=== PATIENT | male | born 1995 | race Caucasian/White ===

== ENCOUNTER 2019-10-07 09:46 | Day surgery (SDC) | payer OTHER, SELFPAY ==
[2019-10-07] VITALS (12 sets, daily range): BP systolic 103–127; BP diastolic 41–81; PULSE 53–100; RESP 12–22; TEMP 36.2–36.6; O2SAT 95–100
--- NOTE | ~2019-10-07 | CT_ITS ---
EXAMINATION: CT abdomen pelvis w con DATE: 10/07/2019 12:21 INDICATION: Generalized abdominal pain. Vomiting. TECHNIQUE: Computed tomography (CT) of the abdomen and pelvis was performed with 100 mL Omnipaque 350 intravenous contrast. Automated exposure control and iterative reconstruction technique were employe d. The dose-length product was 451.83 mGy-cm. COMPARISON: None. FINDINGS: The visualized portions of the lung bases are clear without pneumonia or pleural effusion. The heart size is normal. No pericardial effusion. The liver, gallbladder, spleen, pancreas, adrenal glands, and kidneys are normal. The appendix is dilated to 10 mm with surrounding mild fat stranding, consistent with appendicitis. There are no pathologically enlarged lymph nodes. There is no free int raperitoneal fluid. There is mild lumbar spondylosis. IMPRESSION: 1. Acute appendicitis. I called this result to Mikaela Meléndez on 10/07/19 at 12:36 PM. Reviewed, dictated and finalized at location A. PHONE BETTING CLERK
--- NOTE | 2019-10-07 10:15 | ED.GENADULT ---
HPI - General Adult General Chief complaint: Abdominal Pain <VICTOR HUGO Dias Last Filed: 10/07/19 13:02> Stated complaint: Abd pain, vomiting <VICTOR HUGO Dias Last Filed: 10/07/19 13:02> Time Seen by Provider: 10/07/19 10:14 <VICTOR HUGO Dias Last Filed: 10/07/19 13:02> Source: patient and family <VICTOR HUGO Dias Last Filed: 10/07/19 13:02> Mode of arrival: ambulatory <VICTOR HUGO Dias Last Filed: 10/07/19 13:02> Limitations: no limitations <VICTOR HUGO Dias Last Filed: 10/07/19 13:02> History of Present Illness HPI narrative: Patient is here for evaluation of vomiting that started this morning approximately 5 AM. He states that he frequently has colicky abdominal pain but today the pain was significant primarily across his mid abdomen. But he describes the pain as throughout his abdomen, no localized area. His emesis was clear, he had a hard stool this morning. And is urinating fine. No fever. No history of bowel disease in himself or his family. <VICTOR HUGO Dias Last Filed: 10/07/19 13:02> Onset (ago): hour(s) <VICTOR HUGO Dias Last Filed: 10/07/19 13:02> Location: abdomen <VICTOR HUGO Dias Last Filed: 10/07/19 13:02> Radiation: periumbilical <VICTOR HUGO Dias Last Filed: 10/07/19 13:02> Severity: moderate <VICTOR HUGO Dias Last Filed: 10/07/19 13:02> Quality: aching <VICTOR HUGO Dias Last Filed: 10/07/19 13:02> Relieving factors: none <VICTOR HUGO Disa Last Filed: 10/07/19 13:02> Exacerbating factors: movement <Mikaela Meléndez PA-C - Last Filed: 10/07/19 13:02> Associated symptoms: denies other symptoms <Mikaela Meléndez PA-C - Last Filed: 10/07/19 13:02> Related Data Allergies/adverse reactions: Allergies Allergy/AdvReac Type Severity Reaction Status Date / Time No Known Allergies Allergy Unverified 10/07/19 10:04 <Mikaela Meléndez PA-C - Last Filed: 10/07/19 13:02> Review of Systems Review of Systems: All systems reviewed & are unremarkable except as noted in HPI and below <VICTOR HUGO Dias Last Filed: 10/07/19 13:02> [facility] Past Medical History Medical History: Medical History Marijuana smoker Marijuana use Nasal bone fx-closed nasal reconstruction. Smoker <VICTOR HUGO Dias Last Filed: 10/07/19 13:02> Family History Family History: Family History (Updated 10/07/19 @ 18:18 by Cristy Goff RN) Mother Irritable bowel syndrome Grandparent Diabetes mellitus <VICTOR HUGO Dias Last Filed: 10/07/19 13:02> Social History Social History: Social History Smoking status: Current every day smoker Tobacco type: cigarettes and e-cigarettes Additional smoking assessment comments: patient states that he uses a vape to smoke nicotine Alcohol intake: current Drinks per week: 4 Substance use: current Substance use type: marijuana Living arrangements: with family Gender identity (if verbalized by the patient): Male Spiritual care concerns: No Agree to blood products: Yes <VICTOR HUGO Dias Last Filed: 10/07/19 13:02> Exam Const: General: no acute distress and alert <VICTOR HUGO Dias Last Filed: 10/07/19 13:02> Orientation/consciousness: patient oriented x3 <VICTOR HUGO Dias Last Filed: 10/07/19 13:02> Eyes: Pupils: Equal, round and reactive pupils present <Mikaela Meléndez PA-C - Last Filed: 10/07/19 13:02> Course Course Emergency Course: CT results called from radiologist, patient has appendicitis. Page placed to surgery. Dr. Echols as reviewed CT results. Will take to OR. Pt last ate last evening. <Mikaela Meléndez PA-C - Last Filed: 10/07/19 13:02> [employer] DEVELOPER/PA Physician Supervision Patient was evaluated and found to have appendicitis. General surgery co
[2019-10-07 10:18] LABS: Basophils Percent Auto 0.3 % (0.2-1.2); Eosinophils Absolute Auto 0.1 K/mm3 (0-0.3); Eosinophils Percent Auto 1.5 % (0-4.4); Hematocrit 45.1 % (42.0-52.0); Hemoglobin 15.2 g/dL (14.0-18.0); Immature Granulocyte Absolute 0.02 K/mm3 (0.00-0.031); Immature Granulocyte Percent A 0.2 % (0-0.5); Lymphocytes Absolute Auto 2.04 K/mm3 (0.9-3.2); Lymphocytes Percent Auto 21.5 % (18.3-44.2); Mean Corpuscular HGB Conc 33.7 g/dl (32-36); Mean Corpuscular Hemoglobin 29.8 pg (26-34); Mean Corpuscular Volume 88.4 fl (80-100); Mean Platelet Volume 10.5 fl (7.4-10.4); Monocytes Absolute Auto 0.6 K/mm3 (0.1-0.6); Monocytes Percent Auto 6.2 % (2.6-8.5); Neutrophils Absolute Auto 6.7 K/mm3 (1.3-6.7); Neutrophils Percent Auto 70.3 % (45.5-73.1); Platelet Count Result 294 k/mm3 (150-375); Red Cell Distribution Width 12.3 % (11.5-14.5); White Blood Count 9.5 K/mm3 (4.5-10.0)
[2019-10-07 10:24] LABS: Add Urine Microscopic? YES; Appearance Urine Clear (Clear); Bilirubin Urine Negative (Negative); Blood Urine Negative (Negative); Color Urine Yellow (Yellow); Glucose Urine UA Negative (Negative); Ketones Urine Trace mg/dL (Negative); Leukocyte Esterase Ur Negative LEU/UL (Negative); Mucus Urine Rare /lpf; Nitrate Urine Negative (Negative); Protein Urine Negative (Negative); RBC Urine 0-2 /hpf (0-2); Specific Grav Ur 1.029 (1.001-1.035); WBC Urine 0-3 /hpf
[2019-10-07 10:31] LABS: Alanine Aminotransferase 17 U/L (4-50); Albumin Level 4.8 g/dL (3.5-5.1); Alkaline Phosphatase 79 U/L (38-126); Aspartate Amino Transferase 22 U/L (17-59); Bilirubin,Total 0.6 mg/dL (0.2-1.3); Blood Urea Nitrogen 11 mg/dL (9-20); Calcium 9.8 mg/dL (8.4-10.2); Carbon Dioxide 25 mmol/L (22-30); Chloride 99 mmol/L (98-107); Estimated CRCL calculation 87 ml/min; Estimated Glomerular Filt Rate > 60; Glucose 117 mg/dL (75-110); Lipase 391 U/L (23-300); Potassium 3.9 mmol/L (3.4-5.0); Sodium 136 mmol/L (137-145)
[2019-10-07] MEDS: SODIUM CHLORIDE 0.9% IV 1,000 ML 999 ML IV CONT (11:17)
--- NOTE | 2019-10-07 13:01 | PM.IMHP ---
H&P: HPI History of Present Illness Chief complaint: APPENDICITIS Narrative: Troy Greene is a 24 year old male who presented today at the ED for evaluation of vomiting that started this morning approximately 5 AM. He states that he frequently has colicky abdominal pain but today the pain was significant primarily across his mid abdomen. But he describes the pain as throughout his abdomen, no localized area. His emesis was clear, he had a hard stool this morning. And is urinating fine. No fever. No history of bowel disease in himself or his family. For the workup in the ER shows fairly normal labs, however, the CT scan of the abdomen and pelvis shows a 10 mm dilated appendix with some surrounding stranding suggestive of inflammation. Review of Systems Constitutional: Constitutional: Denies fatigue, Denies fever(s) and Denies weight loss Eyes: Eyes: Denies loss of vision and Denies eye pain ENT: Reports Normal hearing present, Denies change in voice, Denies dizziness and Denies headache(s) Cardiovascular: Cardiovascular: Denies chest pain and Denies dyspnea Respiratory: Respiratory: Denies dyspnea and Denies wheezing Gastrointestinal: Gastrointestinal: Reports abdominal pain Musculoskeletal: Musculoskeletal: Denies back pain and Denies arthralgias Neurologic: Reports Normal hearing present, Denies dizziness, Denies headache(s), Denies loss of vision and Denies memory loss Psychiatric: Psychiatric: Denies memory loss and Denies panic attacks Endocrine: Endocrine: Reports no additional endocrine complaints Hematologic/Lymphatic: Hematologic/Lymphatic: Reports no additional hematologic/lymphatic complaints Allergic/Immunologic: Allergic/Immunologic: Denies wheezing PMFSH Past Medical History Medical History Marijuana smoker Marijuana use Nasal bone fx-closed nasal reconstruction. Smoker Social History Social History Smoking status: Former smoker Tobacco type: e-cigarettes Alcohol intake: current Substance use type: marijuana Living arrangements: with family Gender identity (if verbalized by the patient): Male Meds Home Medications and Allergies Home Medications Medication Instructions Recorded Confirmed Type No Home Medications 10/07/19 10/07/19 History Allergies Allergy/AdvReac Type Severity Reaction Status Date / Time No Known Allergies Allergy Unverified 10/07/19 10:04 Vital Signs Vital Signs - 24 hr 10/07/19 09:54 10/07/19 12:38 Temperature 36.2 C L Pulse Rate 71 64 Respiratory Rate 16 18 Blood Pressure 121/75 127/81 Pulse Oximetry 100 98 Exam Const: General: cooperative, no acute distress, alert and awake Orientation/consciousness: patient oriented x3 HENMT: Mouth: Yes moist mucous membranes Neck: Neck: normal visual inspection Chest: Chest palpation & inspection: normal inspection of the chest Resp: Effort & Inspection: normal respiratory effort Auscultation: clear to auscultation bilaterally Cardio: Jugular venous distension: no JVD Rate: regular rate Rhythm: regular rhythm GI: Inspection: normal to inspection and no scars GI Palp: Yes abdominal tenderness (Across lower abdomen) Auscultation: normal bowel sounds Rectal Exam: deferred Other: No real point tenderness. No peritoneal signs. Neuro: General: patient oriented x3 and moves all extremities Speech: normal speech Extrem: General: normal exam except as noted Psych: Mental Status: mental status grossly normal Speech and movement: Normal speech and movement present Affect: normal affect Thought content: Yes Normal thought content present H&P: Results Labs Labs: Short CBC 10/07/19 Range/Units 10:10 WBC 9.5 (4.5-10.0) K/mm3 Hgb 15.2 (14.0-18.0) g/dL Hct 45.1 (42.0-52.0) % Plt Count 294 (150-375) k/mm3 [facility] 10/07/19 10:10 Sodium 136 L Potassium 3.9 Chloride 99 Carbon Dioxide
[2019-10-07] MEDS: SODIUM CHLORIDE 0.9% IV 1,000 ML 125 ML IV CONT (13:05)
--- NOTE | 2019-10-07 13:10 | WPDANESEPP ---
Anes - Eval Pre Procedure Procedure: Laparoscopic Appendectomy Date/Time: 10/07/19 13:10 Surgeon: Preston Echols M.D. Pre Op Diagnosis: APPENDICITIS Patient Data Age: 24 Gender: M Height: 1.78 m Weight: 86 kg Last Vital Signs Temp 36.2 C L 10/07/19 09:54 Pulse 64 10/07/19 12:38 Resp 18 10/07/19 12:38 BP 127/81 10/07/19 12:38 Pulse Ox 98 10/07/19 12:38 Allergies Allergy/AdvReac Type Severity Reaction Status Date / Time No Known Allergies Allergy Unverified 10/07/19 10:04 Home Medications Medication Instructions Recorded Confirmed Type No Home Medications 10/07/19 10/07/19 History Laboratory Tests 10/07/19 10/07/19 10/07/19 10:10 10:10 10:10 WBC 9.5 K/mm3 K/mm3 (4.5-10.0) RBC 5.10 M/mm3 M/mm3 (4.6-6.20) Hgb 15.2 g/dL g/dL (14.0-18.0) Hct 45.1 % % (42.0-52.0) MCV 88.4 fl fl (80-100) MCH 29.8 pg pg (26-34) MCHC 33.7 g/dl g/dl (32-36) RDW 12.3 % % (11.5-14.5) Plt Count 294 k/mm3 k/mm3 (150-375) MPV 10.5 fl H fl (7.4-10.4) Immature Gran % (Auto) 0.2 % % (0-0.5) Neut % (Auto) 70.3 % % (45.5-73.1) Lymph % (Auto) 21.5 % % (18.3-44.2) Fountain % (Auto) 6.2 % % (2.6-8.5) Eos % (Auto) 1.5 % % (0-4.4) Baso % (Auto) 0.3 % % (0.2-1.2) Lymph # (Auto) 2.04 K/mm3 K/mm3 (0.9-3.2) Fountain # (Auto) 0.6 K/mm3 K/mm3 (0.1-0.6) Eos # (Auto) 0.1 K/mm3 K/mm3 (0-0.3) Baso # (Auto) 0.0 K/mm3 K/mm3 (0.0-0.1) Abs Immat Gran (auto) 0.02 K/mm3 K/mm3 (0.00-0.031) Absolute Neuts (auto) 6.7 K/mm3 K/mm3 (1.3-6.7) Absolute Nucleated RBC 0.0 K/mm3 K/mm3 (0.0-0.012) Nucleated RBC % 0.0 % % (0.0-0.2) Sodium 136 mmol/L L mmol/L (137-145) Potassium 3.9 mmol/L mmol/L (3.4-5.0) Chloride 99 mmol/L mmol/L (98-107) Carbon Dioxide 25 mmol/L mmol/L (22-30) BUN 11 mg/dL mg/dL (9-20) Creatinine 1.20 mg/dL mg/dL (0.7-1.3) Estim Creat Clear Calc 87 ml/min ml/min Estimated GFR > 60 (59 - ) Glucose 117 mg/dL H mg/dL (75-110) Calcium 9.8 mg/dL mg/dL (8.4-10.2) Total Bilirubin 0.6 mg/dL mg/dL (0.2-1.3) AST 22 U/L U/L (17-59) ALT 17 U/L U/L (4-50) Alkaline Phosphatase 79 U/L U/L (38-126) Total Protein 8.0 g/dL g/dL (6.3-8.2) Albumin 4.8 g/dL g/dL (3.5-5.1) Lipase 391 U/L H U/L (23-300) Urine Color Yellow (Yellow) Urine Appearance Clear (Clear) Urine pH 7.0 (5.0-9.0) Ur Specific [place] 1.029 (1.001-1.035) Urine Protein Negative mg/dL mg/dL (Negative) Urine Glucose (UA) Negative mg/dL mg/dL (Negative) Urine Ketones Trace mg/dL mg/dL (Negative) Ur Blood (Man) Negative (Negative) Urine Nitrate Negative (Negative) Urine Bilirubin Negative (Negative) Urine Urobilinogen 2.0 mg/dL H mg/dL (<2.0) Leukocyte Esterase Rfl Negative ODALIS/UL ODALIS/UL (Negative) Urine RBC 0-2 /hpf /hpf (0-2) Urine WBC 0-3 /hpf /hpf Urine Mucus Rare /lpf /lpf Patient hx anesthesia problems: none Family hx anesthesia problems: none PMFSH Past Medical History Medical History Nasal bone fx-closed nasal reconstruction. Smoker Social History Social History Smoking status: Former smoker Tobacco type: e-cigarettes Alcohol intake: current Substance use type: marijuana Living arrangements: with family Gender identity (if verbalized by the patient): Male Exam Day of Procedure 10/07/19 13:10
--- NOTE | 2019-10-07 14:09 | P.PNAN_ITS ---
Anes - Eval Final PreProcedure Day of Procedure 10/07/19 14:09 Patient weight: overweight Heart: regular rate and rhythm Lungs: clear to auscultation Airway: Mallampati scale class II Last oral intake: >/= 8 hours ASA classification: II Emergent: yes Anesthetic plan: proceed Anesthesia type and monitoring: general ETT and standard monitoring Other findings: exam per Informed Consent: The patient's anesthetic plan and its attendant risks and be nefits were discussed with the patient/family/POA. Questions were solicited and answers provided to the satisfaction of the patient/family/POA.
[2019-10-07] MEDS: BUPIVACAINE/EPINEPHRINE 0.5% 30 ML VIAL INFILTRATE (14:44)
--- NOTE | 2019-10-07 15:31 | PM.PROC ---
Procedure Note - Detailed Date of procedure: 10/07/19 Pre-op diagnosis: APPENDICITIS 1. Acute appendicitis 2. Pigmented skin lesion greater than 6 mm in size soft upper quadrant abdomen Post-op diagnosis: same (3.Dense adhesions of the distal ileum to the right pelvic and abdominal sidewall) Procedure performed: 1. Laparoscopic Appendectomy 2. Excision of nevus skin left upper quadrant of the abdomen 3. Lysis of adhesions of the distal ileum to pelvic and abdominal sidewall Description of procedure: The patient was seen again in the Holding Room. The risks, benefits, complications, treatment options, and expected outcomes were discussed with the patient and/or family. The possibilities of reaction to medication, pulmonary aspiration, perforation of viscus, bleeding, recurrent infection, finding a normal appendix, the need for additional procedures, failure to diagnose a condition, and creating a complication requiring transfusion or operation were discussed. There was concurrence with the proposed plan and informed consent was obtained. The site of surgery was properly noted/marked. The patient was taken to Operating Room, and a time out was preformed which identified this as the proper patient, and the procedure verified as laparoscopic appendectomy, possible open. The patient was placed in the supine position and general anesthesia was induced, along with placement of orogastric tube, SCD hose, and a Flynn catheter. The abdomen was prepped and draped in a sterile fashion. A 5 mm umbilical incision was made and the peritoneal cavity was accessed using the Veress needle technique. Once the abdomen was insufflated to 14 mmHg pressure a 5 mm XL trocar over the 0? 5 mm scope was carefully twisted into the abdomen via the umbilicus. The pneumoperitoneum was then established to steady pressure of 14 mm Hg. A 12 mm laparoscopic port was placed through a transverse suprapubic incision. An additional 5 mm cannula was then placed in the left upper quadrant of the abdomen under direct vision. (At the site of this port insertion there was a dark nevus present on the skin. Prior to placing the port I did a transverse elliptical excision of this lesion with very narrow margins superior and inferior. Specimen was sent for pathologic evaluation and I excised it into subcutaneous fat. Bovie cautery was used for hemostasis in the wound and then the wound left open to be used as the left upper quadrant port site). After the port was in place, a careful evaluation of the entire abdomen was carried out. It was noted that the very distal ileum just inferior to ileocecal valve was riding a little bit high more about the level of the umbilicus was densely adhered and a loop against the anterior abdominal sidewall and lateral pelvic sidewall. A picture of this was taken with the laparoscoped. The patient was placed in Trendelenburg and left lateral decubitus position. The small intestines were retracted in the cephalad and left lateral direction away from the pelvis and right lower quadrant. The patient was found to have an enlarged and inflamed appendix that was extending with its base inferiorly and its tip superiorly lying in the right lateral colic gutter. There was no evidence of perforation. The appendix was carefully dissected. The appendix was sitting in a reverse position laying in the right lateral colic gutter. Because of this the tip was pointing toward the right lobe of the liver. Therefore, I dissected the mesentery at the appendix base and slid the 1st stapler application all the way across the base from inferior to superior. We were able to proceed immediately to stapling off the appendix at it's junction with the cecum. This was done using the 45 mm stapler with a 3.5 mm bowel wall load. Minimal appendiceal stump was left in place. There was some minor bleeding from a branch of the appendiceal artery right next to the stump which was stapled but bleedi
[2019-10-07] MEDS: LACTATED RINGERS 1,000 ML 30 ML IV CONT ×2 (15:39→16:10)
--- NOTE | 2019-10-07 18:16 | PC.NURSE ---
This patient, Troy Greene, was admitted to [facility] Surg Room 311-01. Patient/family oriented to hospital policies and general routines including ID bracelet, bed and alarms, visiting hours, pain management, procedures, bathroom and other care routines, personal items, smoking policy, room service/diet, and visiting hours. Valuables list has been completed. Information on how to activate the Rapid Response Team has been discussed. Patient/Family are encouraged to report perceived risks to care and to ask questions if they do not understand what they are told or what they should do.
[2019-10-07] MEDS: LACTATED RINGERS 1,000 ML 100 ML IV CONT (18:17)
[2019-10-07] MEDS: MORPHINE SULFATE 4 MG/ML INJ IV PUSH (19:00)
[2019-10-07] MEDS: SENNA/DOCUSATE SODIUM TABLET 2 TAB PO (20:57)
[2019-10-08 06:00] VITALS: BP 116/87; PULSE 62; RESP 22; TEMP 36.9; O2SAT 100
[2019-10-08] MEDS: MORPHINE SULFATE 2 MG/ML INJ IV PUSH (06:27)
[2019-10-08 06:43] LABS: Blood Urea Nitrogen 8 mg/dL (9-20); Calcium 9.4 mg/dL (8.4-10.2); Carbon Dioxide 25 mmol/L (22-30); Chloride 101 mmol/L (98-107); Estimated CRCL calculation 103 ml/min; Estimated Glomerular Filt Rate > 60; Glucose 101 mg/dL (75-110); Hematocrit 41.2 % (42.0-52.0); Hemoglobin 13.5 g/dL (14.0-18.0); Mean Corpuscular HGB Conc 32.8 g/dl (32-36); Mean Corpuscular Hemoglobin 29.4 pg (26-34); Mean Corpuscular Volume 89.8 fl (80-100); Platelet Count Result 262 k/mm3 (150-375); Potassium 3.8 mmol/L (3.4-5.0); Red Blood Count 4.59 M/mm3 (4.6-6.20); Red Cell Distribution Width 12.4 % (11.5-14.5); Sodium 136 mmol/L (137-145); White Blood Count 10.9 K/mm3 (4.5-10.0)
[2019-10-08] MEDS: ONDANSETRON INJ 4 MG/2 ML VIAL IV PUSH (10:03)
[2019-10-08 11:32] VITALS: BMI 27.7
--- NOTE | 2019-10-08 15:49 | PM.PNGS ---
Progress Note: A&P Assessment and Plan (1) Acute appendicitis: Onset Date: ~10/07/19 Code(s): K35.80 - Unspecified acute appendicitis Status: Acute Assessment and Plan: patient progressing slowly after appendectomy Having some continued dysuria possibly related to the Flynn catheter placed at the time of surgery. Encourage patient to changed to the oral pain medication to see if this would last longer period He is just trying a full liquid diet this morning. Will advance to soft as he seems comfortable. Discussed possible suppositories with him to help stimulate emptying of the rectum. (2) Marijuana smoker: Code(s): F12.90 - Cannabis use, unspecified, uncomplicated Status: Acute Subjective Subjective Date/Time Seen: 10/08/19 15:49 Post Op day: 1 Patient reports: still having pain and no bowel movement Interval history: patient complaining of mid abdominal pain. Also complaining of inability to void well with significant discomfort in trying to avoid. He is able to void okay Once he gets the stream started. Review of Systems Constitutional: Constitutional: Reports no additional constitutional complaints ENT: Reports other (Mucous Membranes moist.) Cardiovascular: Cardiovascular: Denies dyspnea Respiratory: Respiratory: Denies pain on inspiration and Denies dyspnea Genitourinary: Genitourinary: Denies hematuria and Reports other ( Discomfort prior to and during urination) Musculoskeletal: Musculoskeletal: Reports other (No calf swelling or edema) Integumentary/Breasts: Skin/Breast: Reports system reviewed and no additional complaints, except as docu Exam Const: General: cooperative, no acute distress, alert and awake Orientation/consciousness: patient oriented x3 HENMT: Mouth: Yes moist mucous membranes Neck: Neck: normal visual inspection Chest: Chest palpation & inspection: normal inspection of the chest Resp: Effort & Inspection: normal respiratory effort Auscultation: clear to auscultation bilaterally Cardio: Jugular venous distension: no JVD Rate: regular rate Rhythm: regular rhythm GI: GI Palp: Yes Tenderness to palpation present (GI) ( mid abdomen and right lower quadrant) Auscultation: normal bowel sounds Rectal Exam: deferred Other: incisions are clean and dry Neuro: General: patient oriented x3 and moves all extremities Speech: normal speech Extrem: General: normal exam except as noted Psych: Mental Status: mental status grossly normal Speech and movement: Normal speech and movement present Affect: normal affect Thought content: Yes Normal thought content present Objective Data Vital Signs Vital Signs: Vital Signs - 24 hr 10/07/19 15:50 10/07/19 16:05 10/07/19 16:20 Temperature Pulse Rate 75 62 85 Respiratory Rate 15 13 22 H Blood Pressure 123/70 103/60 105/41 L Pulse Oximetry 99 98 100 10/07/19 16:35 10/07/19 16:50 10/07/19 17:15 Temperature 36.6 C 36.4 C Pulse Rate 66 66 70 Respiratory Rate 12 14 20 Blood Pressure 106/67 106/56 L 110/70 Pulse Oximetry 95 97 99 10/07/19 17:30 10/07/19 17:45 10/07/19 21:34 Temperature 36.4 C 36.5 C 36.6 C Pulse Rate 67 64 53 L Respiratory Rate 20 18 18 Blood Pressure 110/61 115/70 124/63 Pulse Oximetry 100 98 96 10/08/19 06:00 Temperature 36.9 C Pulse Rate 62 Respiratory Rate 22 H Blood Pressure 116/87 Pulse Oximetry 100 Intake/Output Intake/Output: Intake & Output 10/05/19 10/06/19 10/07/19 10/08/19 23:59 23:59 23:59 23:59 Intake Total 2049 1950 Output Total 100 1800 Balance 1950 150 Meds/Results Medications: Active Medications Generic Name Dose Route Start Last Admin Trade Name Freq PRN Reason Stop Dose Admin Acetaminophen 500 mg 10/07/19 17:21 Tylenol Tablet PO Q6H PRN Mild Pain (1-3) or Fever Hydrocodone Bitart/Acetaminophen 1 tab 10/07/19 17:21 10/08/19 05:51 [place] 5-325 Mg PO 1 tab Q6H PRN Administration Pain R
[2019-10-08 16:53] VITALS: BP 111/69; PULSE 54; RESP 20; TEMP 37.2; O2SAT 98
[2019-10-08] MEDS: IBUPROFEN 400 MG TABLET 800 MG PO (17:33)
[2019-10-08] MEDS: SENNA/DOCUSATE SODIUM TABLET 2 TAB PO (20:49)
[2019-10-08] MEDS: TRAMADOL HCL 50 MG TABLET PO (20:49)
[2019-10-08 21:38] VITALS: BP 111/56; PULSE 78; RESP 14; TEMP 36.7; O2SAT 100
[2019-10-09] MEDS: IBUPROFEN 400 MG TABLET 800 MG PO ×2 (01:52→09:43)
[2019-10-09 06:00] VITALS: BP 139/62; PULSE 63; RESP 16; TEMP 36.7; O2SAT 97
[2019-10-09 06:34] LABS: Basophils Percent Auto 0.3 % (0.2-1.2); Eosinophils Absolute Auto 0.1 K/mm3 (0-0.3); Eosinophils Percent Auto 0.8 % (0-4.4); Hematocrit 40.6 % (42.0-52.0); Hemoglobin 13.5 g/dL (14.0-18.0); Immature Granulocyte Absolute 0.01 K/mm3 (0.00-0.031); Immature Granulocyte Percent A 0.2 % (0-0.5); Lymphocytes Absolute Auto 3.11 K/mm3 (0.9-3.2); Mean Corpuscular HGB Conc 33.3 g/dl (32-36); Mean Corpuscular Hemoglobin 29.9 pg (26-34); Mean Corpuscular Volume 89.8 fl (80-100); Mean Platelet Volume 10.4 fl (7.4-10.4); Monocytes Absolute Auto 0.4 K/mm3 (0.1-0.6); Monocytes Percent Auto 6.2 % (2.6-8.5); Neutrophils Percent Auto 45.5 % (45.5-73.1); Platelet Count Result 247 k/mm3 (150-375); Red Blood Count 4.52 M/mm3 (4.6-6.20); Red Cell Distribution Width 12.5 % (11.5-14.5); White Blood Count 6.6 K/mm3 (4.5-10.0)
--- NOTE | 2019-10-09 11:09 | PM.DS ---
DS: Diagnosis Admitting Diagnosis Admitting Diagnosis: Unspecified acute appendicitis Discharge Diagnosis (1) Acute appendicitis: Onset Date: ~10/07/19 Code(s): K35.80 - Unspecified acute appendicitis Status: Acute (2) Marijuana smoker: Code(s): F12.90 - Cannabis use, unspecified, uncomplicated Status: Acute DS: Summary Hospital Course Reason for hospitalization: Troy Gerene is a 24 year old male who presented to the ED on 10/07/19 with complaints of colicky abdominal pain in his mid abdomen. ED workup revealed unremarkable labs. CT scan of the abdomen and pelvis showed a 10 mm dilated appendix with some surrounding inflammatory stranding, suspicious for non-perforated acute appendicitis. Our service was contacted and the decision was made to admit the patient for surgical evaluation of acute appendicitis. Hospital Course: The patient underwent a laparoscopic appendectomy by Dr. Echols on 10/07/19. During surgery, there were no signs of perforation and the patient tolerated the procedure well. He was transferred to the medical/surgical floor. He then slowly was advanced on a diet. Yesterday, post op day 1, he was having complaints of right lower abdominal pain and difficulty with urinating. This was primarily a difficulty with starting his stream and then some RLQ abdominal pain during urination once he was able to start voiding. He was kept again overnight last night and a urinalysis was ordered. Today, the specimen was not sent through the night and the nurse was sending this this morning. The patient reports his urinary complaints have improved significantly. He has been able to void through the night with now just very mild RLQ abdominal pain with urination and it is easier to start his stream. He took Tramadol last night around 8 pm and states this helped his pain significantly. He states his pain is tolerable and he is able to tolerate walking the halls. Passing a lot of gas but no BM yet. He is now tolerating a regular diet without complaints of nausea, vomiting, or bloating. He feels he has not have a BM due to not taking in much food because of the taste. No other complaints at this time. The urinalysis negative for UTI. The patient is stable for discharge and discharge instructions were discussed in detail. Would expect the urinary symptoms to continue to improve in the post-op period. Some of this is likely due to the catheter placement during surgery. I discussed with the patient is any of these symptoms worsen or new arise, then to notify our office. Dr. Echols aware of the patient's status this morning and also okay with discharge. Status at Discharge Functional status at discharge: independent ambulation Overall status at discharge: patient is progressing back to baseline Time Spent with Patient Time attestation: Total time spent providing and/or coordinating discharge services: Time spent: Greater than 30 minutes Exam Const: General: comfortable, no acute distress, alert and awake Orientation/consciousness: patient oriented x3 Resp: Effort & Inspection: normal respiratory effort and able to speak in complete sentences Auscultation: clear to auscultation bilaterally Cardio: Rate: regular rate Rhythm: regular rhythm Heart sounds: S1 normal heart sound present and S2 normal heart sound present GI: Inspection: non-distended and incision (Abdominal incisions clean/dry/intact.) GI Palp: Yes Soft to palpation, Yes Tenderness to palpation present (GI) (incisional), No Guarding due to palpation present (GI) and No Rebound tenderness present Auscultation: normal bowel sounds Rectal Exam: deferred Neuro: General: patient oriented x3 and moves all extremities Cranial nerves: Yes CN's II-XII intact bilaterally Speech: normal speech Extrem: General: no calf tenderness and no edema Psych: Mental Status: mental status grossly normal Attitude: cooperative Thought process: Normal thought process present Though
[2019-10-09 11:23] LABS: Add Urine Microscopic? YES; Amorphous Sediment Urine Few; Appearance Urine Clear (Clear); Bacteria Urine Trace /hpf; Bilirubin Urine Negative (Negative); Blood Urine Negative (Negative); Color Urine Yellow (Yellow); Glucose Urine UA Negative (Negative); Ketones Urine 1+ mg/dL (Negative); Leukocyte Esterase Ur Negative LEU/UL (Negative); Mucus Urine Rare /lpf; Nitrate Urine Negative (Negative); Protein Urine 1+ mg/dL (Negative); RBC Urine 0-2 /hpf (0-2); Specific Grav Ur 1.024 (1.001-1.035); Urobilinogen Urine Negative mg/dL (<2.0); WBC Urine 0-3 /hpf
== END 2019-10-09 12:20 | disposition home or self-care (01) ==
LOC: ANHED 10:32 → ANHSURGERY 13:09 → ANH3MEDSUR 17:30
PROVIDERS: Emergency Provider Emergency Medicine; Visit Provider Surgery
PROC: 0DTJ4ZZ Resection of Appendix, Percutaneous Endoscopic Approach (ICD-10-PCS; CPT 44970; principal; 2019-10-07 14:15)
DX: K35.80 Unspecified acute appendicitis (principal); D22.5 Melanocytic nevi of trunk; F12.10 Cannabis abuse, uncomplicated; F17.210 Nicotine dependence, cigarettes, uncomplicated; F17.290 Nicotine dependence, other tobacco product, uncomplicated
CPT/HCPCS: 44970; 11401; 36415; 74177; 80048; 80053; 81001; 83690; 85025; 85027; 88304; 88305; 88342; 96361; 96365; 96375; 99285; A9270; J0330; J1100; J2175; J2250; J2270; J2370; J2405; J2704; J2710; J3010; J7030; J7120; Q9967

== ENCOUNTER 2020-01-31 09:27 | Emergency (ER) | payer OTHER, SELFPAY ==
--- NOTE | 2020-01-31 09:53 | PC.NURSE ---
0945- This RN never seen pt he decided at registration he was leaving d/t him not being covered by insurance.
== END 2020-01-31 09:45 | disposition left against medical advice (07) ==
DX: Z53.21 Procedure and treatment not carried out due to patient leaving prior to being seen by health care provider (principal)
CPT/HCPCS: 99199